=== PATIENT | female | born 1980 | race Caucasian/White ===

== ENCOUNTER 2016-12-01 14:31 | Inpatient (IN) ==
[2016-12-01] MEDS ORDERED: ALBUTEROL NEB SOLN 5 MG/ML 20 ML/BOTTLE CONT NEB STA (14:50)
[2016-12-01] MEDS ORDERED: methylPREDNISolone SOD SUC 125 MG/2 ML VIAL IV STA (14:50)
[2016-12-01] MEDS ORDERED: methylPREDNISolone SOD SUC 125 MG/2 ML VIAL ONE (15:01)
[2016-12-01] MEDS ORDERED: LORazepam 2 MG/1 ML VIAL ONE (15:21)
--- NOTE | 2016-12-01 15:36 | Emergency Department Note ---
Ramiro Yip Meredith, am scribing for, and in the presence of, Jose Starr MD 14: 59. Ro Yip James D, MD, personally performed the services described in this documentation, ascribed by Geovanna Rubio in my presence, and it is both accurate and complete 536 . Arrival - Arrival Chief Complaint: Shortness of Breath Stated Complaint: Asthma ED Nursing Triage Note: ONset of SOB and coughing. Pt had a resp tx at the clinic [facility]. Pt was in pt two weeks ago for same. Mode of Arrival: Ambulatory Limitations: No Limitations Source: Patient, Old Records Reviewed, RN Notes Reviewed - History of Present Illness HPI Narrative: Pt is a 36 y/o white female brought to the ED with c/o asthma attack. She confirms associated dry cough but denies any fever. She has an Albuterol nebulizer and takes Prednisone. Pt was last here for asthma in September 2016. She had additional history of anxiety, depression, bronchitis, kidney stones, and melanoma. Onset (ago): hour(s) Allergies/Adverse Reactions: Allergies Allergy/AdvReac Type Severity Reaction Status Date / Time Cefaclor [From [facility]] Allergy RASH Verified 10/23/16 07:49 Home Medications: Home Medications Medication Instructions Recorded Confirmed Type Escitalopram [Lexapro] 10 mg PO DAILY 06/01/16 12/01/16 History Norgestrel-Ethinyl Estradiol 1 each PO DAILY 06/01/16 12/01/16 History [Uew-Mklwvkue-14 Tablet] Albuterol Tab [Proventil Tab] 1 mg PO TID 09/25/16 12/01/16 History Albuterol/Ipratropium Neb [Duoneb] 3 ml RESP TX Q6H #180 nebulization 10/09/16 12/01/16 Rx solution Montelukast Tab [Singulair Tab] 10 mg PO BID #60 tablet 10/09/16 12/01/16 Rx Pantoprazole Tab [Protonix Tab] 40 mg PO DAILY #30 tablet 10/09/16 12/01/16 Rx amLODIPine [Norvasc] 5 mg PO DAILY #30 tablet 10/09/16 12/01/16 Rx Potassium Chloride 10 meq PO BID 10/24/16 12/01/16 History clonazePAM TAB [KlonoPIN] 0.5 mg PO BID 10/24/16 12/01/16 History hydroCHLOROthiazide 25 mg PO DAILY 10/24/16 12/01/16 History [Hydrochlorothiazide] Benzonatate [Tessalon] 200 mg PO TID PRN 12/01/16 12/01/16 History Theophylline ER Tab 200 mg PO BID W/MEALS 12/01/16 12/01/16 History predniSONE TAB [PredniSONE] 2.5 mg PO QPM 12/01/16 12/01/16 History predniSONE TAB [PredniSONE] 5 mg PO QAM 12/01/16 12/01/16 History Review of System - Review of System 12 point system: reviewed and no additional remarkable complaints except as stated - Review of System Constitutional: Present: as per HPI. Absent: fever Respiratory: Present: as per HPI, cough (dry ), other (asthma attack) Medical,Surgical,& Family Hx - Medical History Cardio: No history of: Cardiovascular Problems Psychological: History of: Anxiety Disorders, Depression Neurology: No history of: Neurological Problems HEENT: History of: Eye Problem (wears glasses) Endocrine: No history of: Endocrine Problems Rheumatology: No history of;: Rheumatological Problems Respiratory: History of: Asthma, Bronchitis Genitourinary: History of: Bladder Problem (uti), Kidney Stones Gastrointestinal: No history of: GI Problems Reproductive: No history of: Reproductive Problems Other: History of: Miscellaneous Medical Problems (melanoma 2011) - Surgical History Abdominal Surgeries: Surgical HX of: Cholecystectomy - Family History Family History: Reports;: Family Heart Disease (Mitral valve prolapse) - Social History Smoking Status: Never smoker Frequency of Alcohol Use: None Type of Drug Use: None Exam Physical Examination: GENERAL: This is a well-nourished, well-developed white female in no apparent distress. VITAL SIGNS: Pulse: 134, Respirations: 26, Blood pressure: 131/76, O2 Saturation : 95 HEENT: Head is normocephalic and atraumatic. Pupils are equally round and reactive to light. Extraocular movement are intact. Oropharynx is benign with moist mucous membranes. NECK: Neck is soft and supple without tenderness. There are no masses. There is no lymphadenopathy. LUNGS: Tachypnea and expiratory wheezing in all lung bright. Chest rises symmetrically. There is no chest wall tenderness. CV: Heart is regular rate and rhythm without murmurs, rubs, or gallops. ABDOMEN: Abdomen is soft, non-tender to palpation. There are no abnormal masses palpated. There is no organomegaly. Bowel sounds are present and active. SKIN: Skin is warm and dry. No rash. EXTREMITIES: Patient has full range of motion without tenderness. There is no pedal edema. NEUROLOGIC: Awake, alert, and oriented x4. Cranial nerves II through XII are grossly intact. There are no motorsensory deficits. PSYCHIATRIC: Normal affect. Normal mood. Vital Signs: Vital Signs Pulse Rate 187 H 12/01/16 15:02 Respiratory Rate 26 H 12/01/16 14:37 Blood Pressure 131/76 12/01/16 14:37 O2 Sat by Pulse Oximetry 97 12/01/16 15:02 Course - Consultations Consultation #1: Discussed with hospitalist. Patient will be admitted to their service. Time: 15:55 Results - Diagnostic Findings Procedure: Chest x-ray: image reviewed by me (No infiltrates, no pleural effusions.) Disposition Clinical Impression: Acute asthma exacerbation Case discussed with: patient Disposition: Disch To Home/Self Care Condition: Stable
[2016-12-01] MEDS ORDERED: LORazepam 2 MG/1 ML VIAL IV STA ×2 (15:47→16:25)
--- NOTE | 2016-12-01 15:52 | XRay Report ---
Exam: XR chest 1V Date: 12/01/2016 2:53 PM Comparison: 10/05/2016 Indication: Cough, wheezing Technique: Portable AP sitting chest Findings: The heart is normal in size. Bronchial wall thickening with accentuation of the perihilar markings. Removal of the left arm PICC line. Unremarkable mediastinum and osseous structures. Impression: Artifactual densities. Findings consistent with reactive airway disease or viral illness. PROCEDURE INTERPRETED AT [facility] DEPARTMENT OF RADIOLOGY Final Report Signed by: Dr. Rola Torrez
[2016-12-01] MEDS ORDERED: LACTULOSE 20 GM/30 ML UDCUP PO PRN (17:24)
[2016-12-01] MEDS ORDERED: ONDANSETRON 4 MG/2 ML VIAL IV PRN (17:24)
[2016-12-01 17:51] LABS: Basophils # 0.1 10*3/uL (0.0-0.2); Basophils % 0.4 % (0.0-0.8); Eosinophils % 0.1 % (0.00-10.9); Hematocrit 41.4 VOL% (35.7-47.0); Immature Granulocytes % 1.4 %; Immature Granulocytes Absolute 0.19 #; Lymphocytes # 3.3 10*3/uL (1.4-4.0); Lymphocytes % 23.7 % (21.3-54.2); Mean Corpuscular HGB Conc 33.8 GM/DL (32-36); Mean Corpuscular Hemoglobin 31 PG (27-34); Mean Corpuscular Volume 92.6 FL (87-102); Mean Platelet Volume 8.9 FL (9.6-12.0); Monocytes % 7.3 % (1.7-12.7); Neutrophils # 9.3 10*3/uL (1.4-7.4); Neutrophils % 67.1 % (38.7-73.9); Platelet Count 425 10*3/uL (130-400); Red Blood Count 4.47 10*6/uL (3.8-5.5); Red Cell Distribution Width 14.6 % (9.3-17.3); White Blood Count 13.8 10*3/uL (4.5-13.71)
[2016-12-01 18:06] LABS: Bilirubin,Total 0.4 MG/DL (0.2-1.0); Calcium 9.4 MG/DL (8.5-10.1); Osmolality,Calculated 286.1 MOS/KG (273-304); Potassium 3.9 MMOL/L (3.5-5.1); Total Protein 7.3 G/DL (6.4-8.3)
--- NOTE | 2016-12-01 18:23 | Hospitalist History & Physical ---
Assessment and Plan - Time spent with patient Time spent with patient: Greater than 30 minutes (1) Status asthmaticus Status: Acute Assessment and plan: Admit to intensive care unit as inpatient Start IV Solu-Medrol 40 mg IV every 8 hours Increase theophylline to 400 mg by mouth twice daily Consider Aminophyllin drip if not improved Monitor tachycardia Use Xopenex Consider pulmonary consultation Current Visit: No Qualifiers: Asthma severity: severe persistent Qualified Code(s): J45.52 - Severe persistent asthma with status asthmaticus (2) Acute asthma exacerbation Status: Acute Current Visit: Yes Qualifiers: Asthma severity: severe persistent Qualified Code(s): J45.51 - Severe persistent asthma with (acute) exacerbation (3) HTN (hypertension) Status: Acute Assessment and plan: cont norvasc- home meds Current Visit: Yes Qualifiers: Hypertension type: essential hypertension Qualified Code(s): I10 - Essential (primary) hypertension (4) Calculus of kidney Status: Chronic Current Visit: No History of Present Illness Chief complaint: Shortness of breath History of present illness: Ms. Hess is a 36 year old female with a hx of asthma. She is a patient of Dr. Moser. She presents to the emergency department today with severe shortness of breath and cough that began earlier this morning. She was hospitalized recently in September for similar symptoms of asthma exacerbation. She is treated with theophylline and prednisone daily. She has been tapering her prednisone as prescribed and has been on a reduced dose of theophylline 200 mg twice daily. This morning she was not feeling well. She went to work. She began having a cough and shortness of breath. This triggered a severe episode of bronchospasm. She was brought to the emergency department and treated with 1 hour-long nebulizer treatment of albuterol. She was also given 125 mg of Solu -Medrol. She continues to wheeze and have cough. She has had periods of tachycardia up to the 140-150 bpm. I was consult by the emergency room physician to evaluate the patient for inpatient hospitalization and treatment for her acute asthma exacerbation with respiratory distress. The patient will be admitted to the intensive care unit for close monitoring. I've increased her theophylline to 400 mg twice daily and started her on IV Solu -Medrol 40 mg IV every 8. Duo nebs have been ordered. Home Medications Medication Instructions Recorded Confirmed Type Escitalopram [Lexapro] 10 mg PO DAILY 06/01/16 12/01/16 History Norgestrel-Ethinyl Estradiol 1 each PO DAILY 06/01/16 12/01/16 History [Euv-[id number]-39 Tablet] Albuterol Tab [Proventil Tab] 1 mg PO TID 09/25/16 12/01/16 History Albuterol/Ipratropium Neb [Duoneb] 3 ml RESP TX Q6H #180 nebulization 10/09/16 12/01/16 Rx solution Montelukast Tab [Singulair Tab] 10 mg PO BID #60 tablet 10/09/16 12/01/16 Rx Pantoprazole Tab [Protonix Tab] 40 mg PO DAILY #30 tablet 10/09/16 12/01/16 Rx amLODIPine [Norvasc] 5 mg PO DAILY #30 tablet 10/09/16 12/01/16 Rx Potassium Chloride 10 meq PO BID 10/24/16 12/01/16 History clonazePAM TAB [KlonoPIN] 0.5 mg PO BID 10/24/16 12/01/16 History hydroCHLOROthiazide 25 mg PO DAILY 10/24/16 12/01/16 History [Hydrochlorothiazide] Benzonatate [Tessalon] 200 mg PO TID PRN 12/01/16 12/01/16 History Theophylline ER Tab 200 mg PO BID W/MEALS 12/01/16 12/01/16 History predniSONE TAB [PredniSONE] 2.5 mg PO QPM 12/01/16 12/01/16 History predniSONE TAB [PredniSONE] 5 mg PO QAM 12/01/16 12/01/16 History Allergies Allergy/AdvReac Type Severity Reaction Status Date / Time Cefaclor [[facility]] Allergy RASH Verified 10/23/16 07:49 Medical,Surgical,& Family Hx - Medical History Cardio: History of: Hypertension No history of: Cardiovascular Problems Psychological: History of: Anxiety Disorders, Depression Neurology: No history of: Neurological Problems HEENT: History of: Eye Problem (wears glasses) Endocrine: No history of: Endocrine Problems Rheumatology: No history of;: Rheumatological Problems Respiratory: History of: Asthma, Bronchitis Genitourinary: History of: Bladder Problem (uti), Kidney Stones Gastrointestinal: No history of: GI Problems Reproductive: No history of: Reproductive Problems Other: History of: Miscellaneous Medical Problems (melanoma 2012) - Surgical History Abdominal Surgeries: Surgical HX of: Cholecystectomy - Family History Family History: Reports;: Family Heart Disease (Mitral valve prolapse) - Social History Smoking Status: Never smoker Frequency of Alcohol Use: None Type of Drug Use: None 12 point system: reviewed and no additional remarkable complaints except as stated - Constitutional Constitutional: Present: as per HPI. Absent: chills, fever(s) - Respiratory Respiratory: Present: cough, dyspnea, dyspnea on exertion, wheezing Exam - Constitutional General appearance: mild distress, over weight - Head Head exam: Present: normal inspection, normocephalic, atraumatic - Eye Eye exam: Present: EOMI Pupils: Present: SEEMA - ENT ENT exam: Present: normal exam - Neck Neck exam: Present: normal inspection. Absent: lymphadenopathy, tenderness - Respiratory Respiratory exam: Present: decreased breath sounds, prolonged expiratory phase, wheezes - Cardiovascular Cardiovascular exam: Present: tachycardia - GI/Abdominal GI/Abdominal exam: Present: normal bowel sounds, soft. Absent: tenderness, rebound - Extremities Exam Extremities exam: Present: normal inspection, full ROM, edema. Absent: calf tenderness - Neurological Exam Neurological exam: Present: alert, oriented X3 - Psychiatric Psychiatric exam: Present: normal affect, normal mood, anxious - Skin Skin exam: Present: normal color, warm, dry Results - Labs CBC & BMP: 12/01/16 15:15 12/01/16 15:15 Lab Results: I have reviewed the past 24 hour labs
[2016-12-01] MEDS ORDERED: ALBUTEROL 2.5 MG/3 ML NEB RESP TX PRN (18:27)
[2016-12-01] MEDS ORDERED: INFLUENZA VIRUS VACCINE 0.5 ML SYRINGE IM ONE (19:58)
[2016-12-01] MEDS: ALBUTEROL 2.5 MG/3 ML NEB RESP TX SCH ×2 (19:58→23:11)
[2016-12-01] MEDS: MONTELUKAST 10 MG TABLET PO SCH (20:26)
[2016-12-01] MEDS: clonazePAM 0.5 MG TABLET PO SCH (20:26)
[2016-12-01] MEDS: ALBUTEROL 2 MG TABLET PO SCH (20:36)
[2016-12-01] MEDS: POTASSIUM CHLORIDE 10 MEQ TABLET PO SCH (20:37)
[2016-12-01] MEDS: ENOXAPARIN 40 MG/0.4 ML SYRINGE SUBCUT SCH (22:15)
[2016-12-01] MEDS: BENZONATATE 100 MG CAPSULE PO PRN (22:59)
[2016-12-02] MEDS: LORazepam 1 MG TABLET PO PRN ×2 (01:52→14:43)
[2016-12-02] MEDS: ALBUTEROL 2.5 MG/3 ML NEB RESP TX SCH ×6 (03:39→23:55)
[2016-12-02] MEDS: methylPREDNISolone SOD SUC 40 MG/1 ML VIAL IV SCH ×3 (04:21→16:55)
[2016-12-02 04:38] LABS: Basophils % 0.1 % (0.0-0.8); Hematocrit 37.9 VOL% (35.7-47.0); Hemoglobin 12.8 GM/DL (12.0-16.0); Immature Granulocytes % 0.9 %; Immature Granulocytes Absolute 0.11 #; Lymphocytes % 8.1 % (21.3-54.2); Mean Corpuscular HGB Conc 33.8 GM/DL (32-36); Mean Corpuscular Hemoglobin 31 PG (27-34); Mean Corpuscular Volume 91.8 FL (87-102); Mean Platelet Volume 8.3 FL (9.6-12.0); Monocytes # 0.3 10*3/uL (0.11-0.8); Monocytes % 2.4 % (1.7-12.7); Neutrophils # 10.4 10*3/uL (1.4-7.4); Neutrophils % 88.5 % (38.7-73.9); Platelet Count 338 10*3/uL (130-400); Red Blood Count 4.13 10*6/uL (3.8-5.5); Red Cell Distribution Width 14.9 % (9.3-17.3); White Blood Count 11.8 10*3/uL (4.5-13.71)
[2016-12-02 05:14] LABS: Albumin 3.6 G/DL (3.4-5.0); Bilirubin,Total 0.4 MG/DL (0.2-1.0); Calcium 9.5 MG/DL (8.5-10.1); Osmolality,Calculated 285.8 MOS/KG (273-304); Potassium 4.1 MMOL/L (3.5-5.1)
[2016-12-02] MEDS: BENZONATATE 100 MG CAPSULE PO PRN ×2 (07:38→18:17)
[2016-12-02] MEDS ORDERED: THEOPHYLLINE ER 200 MG TABLET PO SCH (08:00)
--- NOTE | 2016-12-02 08:53 | Hospitalist Progress Note ---
Assessment and Plan (1) Status asthmaticus Status: Acute Assessment and plan: Transferred to the floor-5E IV Solu-Medrol 40 mg IV every 8 hours Increase theophylline to 400 mg by mouth twice daily Monitor tachycardia Use Xopenex Consider pulmonary consultation Current Visit: No Qualifiers: Asthma severity: severe persistent Qualified Code(s): J45.52 - Severe persistent asthma with status asthmaticus (2) Acute asthma exacerbation Status: Acute Current Visit: Yes Qualifiers: Asthma severity: severe persistent Qualified Code(s): J45.51 - Severe persistent asthma with (acute) exacerbation (3) HTN (hypertension) Status: Acute Assessment and plan: cont norvasc- home meds Current Visit: Yes Qualifiers: Hypertension type: essential hypertension Qualified Code(s): I10 - Essential (primary) hypertension (4) Calculus of kidney Status: Chronic Current Visit: No Hospitalist: Subjective Interval history: Patient seen and examined. She is breathing a little bit better this morning. Cough is not as frequent or as vigorous. Vital signs stable. She continues to have periods of tachycardia associated with the cough. I think she can be transferred to the floor today. Continue steroids and theophylline as well as azithromycin. Exam - Constitutional Vitals: Period Temp Pulse Resp BP Sys/Kapadia Pulse Ox Last 24 Hr 97.1 F-98 F 96-126 16-30 95-146/60-93 90-100 General appearance: mild distress, over weight - Head Head exam: Present: normal inspection, normocephalic, atraumatic - Eye Eye exam: Present: EOMI - Respiratory Respiratory exam: Present: wheezes, other (improved air entry) - Cardiovascular Cardiovascular exam: Present: tachycardia - GI/Abdominal GI/Abdominal exam: Present: normal bowel sounds, soft. Absent: tenderness, rebound - Extremities Exam Extremities exam: Present: edema - Neurological Exam Neurological exam: Present: alert, oriented X3 - Psychiatric Psychiatric exam: Present: normal affect, normal mood - Skin Skin exam: Present: normal color, warm, dry Results - Labs CBC & BMP: 12/02/16 04:23 12/02/16 04:24 Lab Results: I have reviewed the past 24 hour labs
[2016-12-02] MEDS ORDERED: ETHINYL ESTRADIOL/NORGESTREL 0.03-0.3 MG TABLET PO SCH (09:00)
[2016-12-02] MEDS ORDERED: hydroCHLOROthiazide 25 MG TABLET PO SCH (09:00)
[2016-12-02] MEDS ORDERED: FUROSEMIDE 40 MG TABLET PO SCH (09:00)
[2016-12-02] MEDS: MONTELUKAST 10 MG TABLET PO SCH ×2 (09:09→21:12)
[2016-12-02] MEDS: FUROSEMIDE 20 MG TABLET PO SCH (09:09)
[2016-12-02] MEDS: ESCITALOPRAM 10 MG TABLET PO SCH (09:09)
[2016-12-02] MEDS: THEOPHYLLINE ER (24 HR) 400 MG CAPSULE PO SCH ×2 (09:09→16:53)
[2016-12-02] MEDS: clonazePAM 0.5 MG TABLET PO SCH ×2 (09:09→21:13)
[2016-12-02] MEDS: ALBUTEROL 2 MG TABLET PO SCH ×3 (09:10→21:12)
[2016-12-02] MEDS: POTASSIUM CHLORIDE 10 MEQ TABLET PO SCH ×2 (09:11→21:12)
[2016-12-02] MEDS: amLODIPine 5 MG TABLET PO SCH (09:11)
[2016-12-02] MEDS: PANTOPRAZOLE 40 MG TABLET PO SCH (09:11)
[2016-12-02] MEDS: AZITHROMYCIN 250 MG TABLET PO SCH (09:16)
[2016-12-02] MEDS: ACETAMINOPHEN 325 MG TABLET PO PRN (09:22)
[2016-12-02] MEDS: ALPRAZolam 0.5 MG TABLET PO PRN (18:13)
[2016-12-02] MEDS: ENOXAPARIN 40 MG/0.4 ML SYRINGE SUBCUT SCH (21:13)
[2016-12-03] MEDS: LORazepam 1 MG TABLET PO PRN (00:02)
[2016-12-03] MEDS: methylPREDNISolone SOD SUC 40 MG/1 ML VIAL IV SCH ×3 (00:45→15:22)
[2016-12-03] MEDS: ACETAMINOPHEN 325 MG TABLET PO PRN (00:50)
[2016-12-03] MEDS: ALBUTEROL 2.5 MG/3 ML NEB RESP TX SCH ×6 (03:51→23:42)
[2016-12-03] MEDS: amLODIPine 5 MG TABLET PO SCH (08:47)
[2016-12-03] MEDS: POTASSIUM CHLORIDE 10 MEQ TABLET PO SCH ×2 (08:47→20:25)
[2016-12-03] MEDS: FUROSEMIDE 20 MG TABLET PO SCH (08:47)
[2016-12-03] MEDS: clonazePAM 0.5 MG TABLET PO SCH ×2 (08:47→20:25)
[2016-12-03] MEDS: ESCITALOPRAM 10 MG TABLET PO SCH (08:47)
[2016-12-03] MEDS: THEOPHYLLINE ER (24 HR) 400 MG CAPSULE PO SCH ×2 (08:47→17:44)
[2016-12-03] MEDS: MONTELUKAST 10 MG TABLET PO SCH ×2 (08:47→20:38)
[2016-12-03] MEDS: PANTOPRAZOLE 40 MG TABLET PO SCH (08:47)
[2016-12-03] MEDS: AZITHROMYCIN 250 MG TABLET PO SCH (08:47)
[2016-12-03] MEDS: ALBUTEROL 2 MG TABLET PO SCH ×3 (08:50→20:24)
[2016-12-03] MEDS: ALPRAZolam 0.5 MG TABLET PO PRN ×2 (09:45→13:55)
--- NOTE | 2016-12-03 11:03 | Hospitalist Progress Note ---
Assessment and Plan (1) Status asthmaticus Status: Acute Assessment and plan: Transferred to the floor IV Solu-Medrol 40 mg IV every 8 hours Increase theophylline to 400 mg by mouth twice daily Monitor tachycardia Use Xopenex Consider pulmonary consultation Current Visit: No Qualifiers: Asthma severity: severe persistent Qualified Code(s): J45.52 - Severe persistent asthma with status asthmaticus (2) Acute asthma exacerbation Status: Acute Current Visit: Yes Qualifiers: Asthma severity: severe persistent Qualified Code(s): J45.51 - Severe persistent asthma with (acute) exacerbation (3) HTN (hypertension) Status: Acute Assessment and plan: cont norvasc- home meds Current Visit: Yes Qualifiers: Hypertension type: essential hypertension Qualified Code(s): I10 - Essential (primary) hypertension (4) Calculus of kidney Status: Chronic Current Visit: No Hospitalist: Subjective Interval history: Patient seen and examined. Overnight events reviewed. Short periods of tachycardia after coughing and with any physical exertion. Overall she reports improved respirations this morning. Less wheezing and less coughing. Exam - Constitutional Vitals: Period Temp Pulse Resp BP Sys/Kapadia Pulse Ox Last 24 Hr 97.1 F-98.3 F 77-123 16-34 119-155/68-85 93-100 General appearance: mild distress - Head Head exam: Present: normal inspection, normocephalic - Respiratory Respiratory exam: Present: clear to auscultation bilaterally - Cardiovascular Cardiovascular exam: Present: regular rate and rhythm - GI/Abdominal GI/Abdominal exam: Present: normal bowel sounds, soft. Absent: tenderness, rebound - Extremities Exam Extremities exam: Present: edema - Neurological Exam Neurological exam: Present: alert, oriented X3 - Psychiatric Psychiatric exam: Present: normal affect, normal mood - Skin Skin exam: Present: normal color, warm, dry Results - Labs CBC & BMP: 12/02/16 04:23 12/02/16 04:24 Lab Results: I have reviewed the past 24 hour labs
[2016-12-03] MEDS: BENZONATATE 100 MG CAPSULE PO PRN (13:54)
[2016-12-03] MEDS: guaiFENesin/CODEINE 5 ML LIQUID PO PRN (13:54)
[2016-12-03] MEDS ORDERED: methylPREDNISolone SOD SUC 125 MG/2 ML VIAL ONE (14:04)
[2016-12-03] MEDS ORDERED: ALBUTEROL/IPRATROPIUM 3 ML NEB RESP TX ONE (14:25)
[2016-12-03] MEDS ORDERED: methylPREDNISolone SOD SUC 40 MG/1 ML VIAL IV ONE (14:25)
[2016-12-03] MEDS ORDERED: LORazepam 2 MG/1 ML VIAL IV ONE (14:30)
[2016-12-03] MEDS ORDERED: LIDOCAINE 4% TOP SOLN 50 ML BOTTLE RESP TX ONE (14:30)
[2016-12-03] MEDS ORDERED: LEVALBUTEROL 1.25 MG/3 ML NEB RESP TX ONE (14:30)
[2016-12-03] MEDS ORDERED: LORazepam 2 MG/1 ML VIAL ONE (14:31)
[2016-12-03] MEDS ORDERED: MAGNESIUM SULF RIDER 2 GM in PREMIX 1 EACH IV ONE (14:49)
--- NOTE | 2016-12-03 15:17 | Event Note ---
Called to evaluate patient and respiratory distress. She was noted to be having a severe coughing episode. She was treated with repeat nebulizer treatments as well as an increased dose and steroids IV. Cold rags were applied. The patient appeared to have an element of anxiety. Ativan and morphine were given. Magnesium sulfate infusing. I spoke with Dr. Shaw regarding further recommendations. He advised to increase steroids and increased frequency of nebulizer treatments as needed. The patient has a tachycardia sinus tach in the 120s to 160s. She is visibly worked up and scared and in severe distress. At one point she was hyperventilating. Her lungs sound clear. I stayed at the patient's bedside for 45 minutes while this episode improved.
[2016-12-03] MEDS ORDERED: RACEPINEPHRINE 0.5 ML NEB RESP TX ONE (15:19)
[2016-12-03] MEDS: MORPHINE 2 MG/1 ML SYRINGE IV PRN (15:41)
[2016-12-03 16:10] LABS: ABG Base Excess -2.3 MMOL/L (-2.5-2.5); ABG HCO3 19.4 MMOL/L (20-26); ABG Oxygen Saturation 94.1 % (95-100); ABG PO2 67.5 MM HG (80-95); ABG TCO2 20.2 MMOL/L (23-27); Allen Test Positive
--- NOTE | 2016-12-03 16:36 | XRay Report ---
History is coughing Comparison 12/01/2016 The heart and vessels are at the upper range normal in size. No consolidative infiltrates are seen No pneumothorax identified Impression: Stable portable chest PROCEDURE INTERPRETED AT [facility] DEPARTMENT OF RADIOLOGY Final Report Signed by: Dr. Tonya Goldberg
[2016-12-03] MEDS: LORazepam 2 MG/1 ML VIAL IV PRN (17:05)
--- NOTE | 2016-12-03 20:14 | Pulmonology Consult Note ---
Assessment and Plan (1) Anxiety Status: Acute Assessment and plan: Patient does get quite anxious at times and this may be aggravating her asthma. Current Visit: Yes (2) Status asthmaticus Status: Acute Assessment and plan: She apparently has been having coughing spells but she seems to be moving air fairly well at present. She'll continue with steroids and bronchodilator therapy. Current Visit: No Qualifiers: Asthma severity: severe persistent Qualified Code(s): J45.52 - Severe persistent asthma with status asthmaticus (3) HTN (hypertension) Status: Acute Assessment and plan: Her blood pressure has been reasonably stable but she does have a high heart rate. Current Visit: Yes Qualifiers: Hypertension type: essential hypertension Qualified Code(s): I10 - Essential (primary) hypertension History of Present Illness Chief complaint: asthma History of present illness: Ms. Hess is a 36 year old white female was apparently admitted Sunday with an asthma exacerbation. She has been followed by Dr. Allen has been on a tapering dose of prednisone. She says she went to work Sunday and having a little bit of chest tightness. She had some coughing spells and came to the hospital. She was better yesterday but today she had another flareup. She apparently has severe coughing spells and gets very anxious. She actually is quite comfortable at present. She says she's not having a lot of sinus congestion or drainage. She is not having any heartburn or reflux symptoms. She is not having any fever or coughing purulent sputum. She says she feels okay at present. Home Medications Medication Instructions Recorded Confirmed Type Escitalopram [Lexapro] 10 mg PO DAILY 06/01/16 12/01/16 History Norgestrel-Ethinyl Estradiol 1 each PO DAILY 06/01/16 12/01/16 History [Ase-Ddwctetz-05 Tablet] Albuterol Tab [Proventil Tab] 1 mg PO TID 09/25/16 12/01/16 History Albuterol/Ipratropium Neb [Duoneb] 3 ml RESP TX Q6H #180 nebulization 10/09/16 12/01/16 Rx solution Montelukast Tab [Singulair Tab] 10 mg PO BID #60 tablet 10/09/16 12/01/16 Rx Pantoprazole Tab [Protonix Tab] 40 mg PO DAILY #30 tablet 10/09/16 12/01/16 Rx amLODIPine [Norvasc] 5 mg PO DAILY #30 tablet 10/09/16 12/01/16 Rx Potassium Chloride 10 meq PO BID 10/24/16 12/01/16 History clonazePAM TAB [KlonoPIN] 0.5 mg PO BID 10/24/16 12/01/16 History hydroCHLOROthiazide 25 mg PO DAILY 10/24/16 12/01/16 History [Hydrochlorothiazide] Benzonatate [Tessalon] 200 mg PO TID PRN 12/01/16 12/01/16 History Theophylline ER Tab 200 mg PO BID W/MEALS 12/01/16 12/01/16 History predniSONE TAB [PredniSONE] 2.5 mg PO QPM 12/01/16 12/01/16 History predniSONE TAB [PredniSONE] 5 mg PO QAM 12/01/16 12/01/16 History Allergies Allergy/AdvReac Type Severity Reaction Status Date / Time Cefaclor [[facility]] Allergy RASH Verified 10/23/16 07:49 - Constitutional Constitutional: Absent: chills, fever(s) - EENT Eyes: Absent: loss of vision Ears: Absent: decreased hearing Nose, mouth and throat: Absent: headache(s), sinus pressure, sore throat - Cardiovascular Cardiovascular: Absent: chest pain at rest, edema, orthopnea, palpitations - Respiratory Respiratory: Present: cough, dyspnea, wheezing. Absent: change in phlegm color - Gastrointestinal Gastrointestinal: Absent: abdominal pain, dysphagia, heartburn, nausea, vomiting - Genitourinary Genitourinary: Absent: difficulty urinating, dysuria, urinary frequency - Musculoskeletal Musculoskeletal: Absent: arthralgias - Neurological Neurological: Absent: abnormal speech, focal weakness - Psychiatric Psychiatric: Present: anxiety Exam (Pulmonay) H&P - Constitutional Vitals: Period Temp Pulse Resp BP Sys/Kapadia Pulse Ox Last 24 Hr 97.4 F-98.3 F 32-178 18-157 112-151/69-78 93-100 General appearance: no acute distress, over weight, other (she looks quite comfortable at present.) - Head Head exam: Present: normal inspection, normocephalic - Eye Eye exam: Present: EOMI. Absent: scleral icterus Pupils: Present: SEEMA - ENT ENT exam: Present: normal exam, other (no sinus tenderness) - Neck Neck exam: Present: normal inspection. Absent: lymphadenopathy, thyromegaly - Respiratory Respiratory exam: Present: wheezes (she has only very mild wheezing at present.) . Absent: accessory muscle use - Cardiovascular Cardiovascular exam: Present: regular rate and rhythm. Absent: gallop, systolic murmur - GI/Abdominal GI/Abdominal exam: Present: normal bowel sounds, soft. Absent: organomegaly, tenderness - Extremities Exam Extremities exam: Absent: calf tenderness, edema - Neurological Exam Neurological exam: Present: alert, oriented X3 - Psychiatric Psychiatric exam: Present: anxious - Skin Skin exam: Present: warm, dry Medical,Surgical,& Family Hx - Medical History Cardio: History of: Hypertension No history of: Cardiovascular Problems Psychological: History of: Anxiety Disorders, Depression Neurology: No history of: Neurological Problems HEENT: History of: Eye Problem (wears glasses) Endocrine: No history of: Endocrine Problems Rheumatology: No history of;: Rheumatological Problems Respiratory: History of: Asthma, Bronchitis, Pneumonia, Respiratory Problems No history of: COPD, Intubation, Obstructive Sleep Apnea, Pulmonary Embolism , Pulmonary Hypertension, Lung Cancer Renal: No history of: Renal (Kidney) Cancer, Dialysis, Renal Failure, Renal Problems Genitourinary: History of: Bladder Problem (uti), Kidney Stones (2 times) No history of: Recurring Urinary Tract Infections, Genitourinary Cancer Gastrointestinal: No history of: GI Problems Musculoskeletal: No history of: Amputation Reproductive: No history of: Abnormal Pap Smear, Reproductive Problems Other: History of: Miscellaneous Medical Problems (melanoma 2011) - Surgical History Thoracic Surgeries: Patient denies;: Organ Transplant HEENT Surgeries: Patient denies: Eye Surgery, Thyroid Surgery, Tonsilectomy & Adenoidectomy Abdominal Surgeries: Surgical HX of: Cholecystectomy Reproductive Surgeries: Patient denies;: Genitourinary Surgery - Family History Family History: Reports;: Family Heart Disease (Mitral valve prolapse) - Social History Smoking Status: Never smoker Frequency of Alcohol Use: None Type of Drug Use: None Results - Labs CBC & BMP: 12/02/16 04:23 12/02/16 04:24 Labs: Her ABG showed a PO2 of 67 with a PCO2 of 26 and her pH is 7.49 - Diagnostic Findings Procedure: Chest x-ray: image reviewed by me, report reviewed by me (chest x- ray shows no definite infiltrates)
[2016-12-03] MEDS: ENOXAPARIN 40 MG/0.4 ML SYRINGE SUBCUT SCH (20:25)
[2016-12-03] MEDS ORDERED: methylPREDNISolone SOD SUC 40 MG/1 ML VIAL IV SCH (21:00)
[2016-12-04] MEDS: methylPREDNISolone SOD SUC 40 MG/1 ML VIAL IV SCH ×4 (00:13→23:59)
[2016-12-04] MEDS: guaiFENesin/CODEINE 5 ML LIQUID PO PRN (01:00)
[2016-12-04] MEDS: ALBUTEROL 2.5 MG/3 ML NEB RESP TX SCH ×5 (03:10→19:45)
[2016-12-04 04:00] LABS: Calcium 8.5 MG/DL (8.5-10.1); Magnesium 2.6 MG/DL (1.8-2.4); Potassium 4.3 MMOL/L (3.5-5.1)
[2016-12-04] MEDS: LORazepam 2 MG/1 ML VIAL IV PRN (05:29)
--- NOTE | 2016-12-04 07:45 | Pulmonology Progress Note ---
Pulmonary - PN: Subj Interval history: Patient is a 36-year-old that has chronic asthma and came in with URI and coughing episodes. She apparently has coughing spells that may go on for hours but now she feels better. She says she did get some rest last night. She does have a lot of anxiety. She does take a lot of bronchodilators and her heart rate is elevated. She is not having any distress this morning. Exam (Progress Note) - Constitutional Vitals: Period Temp Pulse Resp BP Sys/[place] Pulse Ox Last 24 Hr 97.6 F-98.4 F 32-178 17-157 108-151/69-99 92-999 Exam: General appearance: no acute distress, over weight, other (she looks quite comfortable at present. She is talking okay and not very short of breath.) - Head Head exam: Present: normal inspection, normocephalic - Eye Eye exam: Present: EOMI. Absent: scleral icterus Pupils: Present: SEEMA - ENT ENT exam: Present: normal exam, other (no sinus tenderness) - Neck Neck exam: Present: normal inspection. Absent: lymphadenopathy, thyromegaly - Respiratory Respiratory exam: Present: Her lungs have fairly good breath sounds bilaterally with just very minimal rhonchi. - Cardiovascular Cardiovascular exam: Present: regular rate and rhythm. Absent: gallop, systolic murmur - GI/Abdominal GI/Abdominal exam: Present: normal bowel sounds, soft. Absent: organomegaly, tenderness - Extremities Exam Extremities exam: Absent: calf tenderness, edema - Neurological Exam Neurological exam: Present: alert, oriented X3 - Psychiatric Psychiatric exam: Present: anxious - Skin Skin exam: Present: warm, dry Results - Labs CBC & BMP: 12/02/16 04:23 12/04/16 03:14 Assessment and Plan (1) Anxiety Status: Acute Assessment and plan: Patient does get quite anxious at times and this may be aggravating her asthma. She does take several nerve medicines. Current Visit: Yes (2) Status asthmaticus Status: Acute Assessment and plan: She apparently has been having coughing spells but she seems to be moving air fairly well at present. We will restart her inhaled bronchodilators and steroids. Current Visit: No Qualifiers: Asthma severity: severe persistent Qualified Code(s): J45.52 - Severe persistent asthma with status asthmaticus (3) HTN (hypertension) Status: Acute Assessment and plan: Her blood pressure has been reasonably stable but she does have a high heart rate. Current Visit: Yes Qualifiers: Hypertension type: essential hypertension Qualified Code(s): I10 - Essential (primary) hypertension
[2016-12-04] MEDS: amLODIPine 5 MG TABLET PO SCH (08:27)
[2016-12-04] MEDS: PANTOPRAZOLE 40 MG TABLET PO SCH (08:27)
[2016-12-04] MEDS: FUROSEMIDE 20 MG TABLET PO SCH (08:27)
[2016-12-04] MEDS: ALBUTEROL 2 MG TABLET PO SCH ×3 (08:27→21:38)
[2016-12-04] MEDS: MONTELUKAST 10 MG TABLET PO SCH ×2 (08:27→21:38)
[2016-12-04] MEDS: AZITHROMYCIN 250 MG TABLET PO SCH (08:27)
[2016-12-04] MEDS: ESCITALOPRAM 10 MG TABLET PO SCH (08:28)
[2016-12-04] MEDS: POTASSIUM CHLORIDE 10 MEQ TABLET PO SCH ×2 (08:28→21:37)
[2016-12-04] MEDS: clonazePAM 0.5 MG TABLET PO SCH ×2 (08:28→21:38)
--- NOTE | 2016-12-04 08:50 | Hospitalist Progress Note ---
Assessment and Plan (1) Status asthmaticus Status: Acute Assessment and plan: Transferred to the floor IV Solu-Medrol 40 mg IV every 8 hours Increase theophylline to 400 mg by mouth twice daily Monitor tachycardia Use Xopenex pulmonary following. Current Visit: No Qualifiers: Asthma severity: severe persistent Qualified Code(s): J45.52 - Severe persistent asthma with status asthmaticus (2) Acute asthma exacerbation Status: Acute Current Visit: Yes Qualifiers: Asthma severity: severe persistent Qualified Code(s): J45.51 - Severe persistent asthma with (acute) exacerbation (3) HTN (hypertension) Status: Acute Assessment and plan: cont norvasc- home meds Current Visit: Yes Qualifiers: Hypertension type: essential hypertension Qualified Code(s): I10 - Essential (primary) hypertension (4) Calculus of kidney Status: Chronic Current Visit: No Hospitalist: Subjective Interval history: Patient seen and examined. Chart reviewed. Pulmonary consult appreciated. Patient had an unremarkable evening after transfer to the ICU. She seems much more calm this morning. Cough has improved. O2 sats and lung sounds are good. Will transfer to floor today. Exam - Constitutional Vitals: Period Temp Pulse Resp BP Sys/[place] Pulse Ox Last 24 Hr 97.6 F-98.4 F 32-178 17-157 108-151/69-99 92-999 General appearance: no acute distress, over weight - Head Head exam: Present: normal inspection, normocephalic, atraumatic - Eye Eye exam: Present: EOMI Pupils: Present: SEEMA - ENT ENT exam: Present: normal oropharynx - Neck Neck exam: Present: normal inspection. Absent: lymphadenopathy, tenderness - Respiratory Respiratory exam: Present: clear to auscultation bilaterally - Cardiovascular Cardiovascular exam: Present: regular rate and rhythm - GI/Abdominal GI/Abdominal exam: Present: normal bowel sounds, soft. Absent: tenderness, rebound - Extremities Exam Extremities exam: Present: normal inspection. Absent: calf tenderness, edema - Neurological Exam Neurological exam: Present: alert, oriented X3 - Psychiatric Psychiatric exam: Present: normal affect, normal mood - Skin Skin exam: Present: normal color, warm, dry Results - Labs CBC & BMP: 12/02/16 04:23 12/04/16 03:14 Lab Results: I have reviewed the past 24 hour labs
[2016-12-04] MEDS ORDERED: MORPHINE 2 MG/1 ML SYRINGE IV ONE (09:00)
[2016-12-04] MEDS: MORPHINE 2 MG/1 ML SYRINGE IV PRN ×2 (09:01→18:05)
[2016-12-04] MEDS: THEOPHYLLINE ER (24 HR) 400 MG CAPSULE PO SCH ×2 (10:09→17:29)
[2016-12-04] MEDS: BECLOMETHASONE 80 MCG/PUFF INHALER 8.7 GM INH SCH ×2 (10:10→21:38)
[2016-12-04] MEDS: ACETAMINOPHEN 325 MG TABLET PO PRN (15:37)
[2016-12-04] MEDS ORDERED: diphenhydrAMINE 50 MG/1 ML VIAL ONE (19:05)
[2016-12-04] MEDS ORDERED: diphenhydrAMINE 50 MG/1 ML VIAL IV ONE (19:10)
[2016-12-04] MEDS ORDERED: LORazepam 2 MG/1 ML VIAL ONE (19:55)
--- NOTE | 2016-12-04 19:56 | Event Note ---
Earlier this evening patient was complaining of a headache. She received IV morphine for the headaches and afterwards she turned red and became altered and agitated. I instructed nursing to move her back down to the unit. I examined her in the unit and she is erythematous and confused. We've ordered IV Benadryl to be given and IV Ativan. We'll we'll continue to monitor in the CCU for now
[2016-12-04] MEDS ORDERED: LORazepam 2 MG/1 ML VIAL IV PRN (20:01)
[2016-12-04] MEDS ORDERED: HALOPERIDOL 5 MG/ML AMP IV PRN (21:07)
[2016-12-04] MEDS: ENOXAPARIN 40 MG/0.4 ML SYRINGE SUBCUT SCH (21:44)
[2016-12-05] MEDS: ALBUTEROL 2.5 MG/3 ML NEB RESP TX SCH ×6 (00:54→20:43)
--- NOTE | 2016-12-05 06:55 | Pulmonology Progress Note ---
Pulmonary - PN: Subj Interval history: Patient is a 36-year-old that has chronic asthma and came in with URI and coughing episodes. She apparently has coughing spells that may go on for hours but now she feels better. Last night she apparently had some type of reaction when she took morphine. She is better now. She does take too many medicines. Her lungs sound clear now. We will try to adjust some of her medicines. Exam (Progress Note) - Constitutional Vitals: Period Temp Pulse Resp BP Sys/[place]ia Pulse Ox Last 24 Hr 96.9 F-99.6 F 83-150 15-44 99-142/55-110 92-99 Exam: General appearance: no acute distress, over weight, other (she looks comfortable now and is in no distress at all.) - Head Head exam: Present: normal inspection, normocephalic - Eye Eye exam: Present: EOMI. Absent: scleral icterus Pupils: Present: SEEMA - ENT ENT exam: Present: normal exam, other (no sinus tenderness) - Neck Neck exam: Present: normal inspection. Absent: lymphadenopathy, thyromegaly - Respiratory Respiratory exam: Present: Her lungs have good breath sounds without any wheezing now. - Cardiovascular Cardiovascular exam: Present: regular rate and rhythm. Absent: gallop, systolic murmur - GI/Abdominal GI/Abdominal exam: Present: normal bowel sounds, soft. Absent: organomegaly, tenderness - Extremities Exam Extremities exam: Absent: calf tenderness, edema - Neurological Exam Neurological exam: Present: alert, oriented X3 - Psychiatric Psychiatric exam: Present: She looks like she is resting okay at present. - Skin Skin exam: Present: warm, dry Results - Labs CBC & BMP: 12/02/16 04:23 12/04/16 03:14 Assessment and Plan (1) Anxiety Status: Acute Assessment and plan: Patient does get quite anxious at times and this may be aggravating her asthma. She does take several nerve medicines. At present she is taking too many medicines. Current Visit: Yes (2) Status asthmaticus Status: Acute Assessment and plan: She apparently has been having coughing spells but she seems to be moving air fairly well at present. Present her lungs are completely clear. We'll cut back on some of her medicines. Current Visit: No Qualifiers: Asthma severity: severe persistent Qualified Code(s): J45.52 - Severe persistent asthma with status asthmaticus (3) HTN (hypertension) Status: Acute Assessment and plan: Her blood pressure has been reasonably stable but she does have a high heart rate. Current Visit: Yes Qualifiers: Hypertension type: essential hypertension Qualified Code(s): I10 - Essential (primary) hypertension
[2016-12-05] MEDS: methylPREDNISolone SOD SUC 40 MG/1 ML VIAL IV SCH ×2 (07:25→20:21)
[2016-12-05] MEDS: THEOPHYLLINE ER (24 HR) 400 MG CAPSULE PO SCH (09:51)
[2016-12-05] MEDS: amLODIPine 5 MG TABLET PO SCH (09:52)
[2016-12-05] MEDS: clonazePAM 0.5 MG TABLET PO SCH ×2 (09:52→20:22)
[2016-12-05] MEDS: PANTOPRAZOLE 40 MG TABLET PO SCH (09:52)
[2016-12-05] MEDS: FUROSEMIDE 20 MG TABLET PO SCH (09:52)
[2016-12-05] MEDS: POTASSIUM CHLORIDE 10 MEQ TABLET PO SCH ×2 (09:52→20:22)
[2016-12-05] MEDS: ESCITALOPRAM 10 MG TABLET PO SCH (09:52)
[2016-12-05] MEDS: BECLOMETHASONE 80 MCG/PUFF INHALER 8.7 GM INH SCH ×2 (10:00→20:22)
--- NOTE | 2016-12-05 10:02 | Hospitalist Progress Note ---
Assessment and Plan (1) Acute asthma exacerbation Status: Acute Current Visit: Yes Qualifiers: Asthma severity: severe persistent Qualified Code(s): J45.51 - Severe persistent asthma with (acute) exacerbation Hospitalist: Subjective Interval history: 36 yo female asthmatic admitted with acute episode of hypoxemia with respiratory alkalosis. Had responded well however yesterday after [facility] transfer developed altered LOC with flushing. Previously tolerated morphine but is on several sedating medications in addition. She is back to baseline with clear lung bright this AM. Exam - Constitutional Vitals: Period Temp Pulse Resp BP Sys/K[place]adia Pulse Ox Last 24 Hr 96.9 F-99.6 F 83-150 15-44 99-142/55-110 92-99 General appearance: over weight - Respiratory Respiratory exam: Present: clear to auscultation bilaterally. Absent: rales, rhonchi, wheezes - Cardiovascular Cardiovascular exam: Present: regular rate and rhythm - GI/Abdominal GI/Abdominal exam: Present: normal bowel sounds - Extremities Exam Extremities exam: Absent: edema - Neurological Exam Neurological exam: Present: alert, oriented X3 Results - Labs CBC & BMP: 12/02/16 04:23 12/04/16 03:14
[2016-12-05] MEDS: ACETAMINOPHEN 325 MG TABLET PO PRN ×2 (12:58→20:21)
--- NOTE | 2016-12-05 14:34 | CT Report ---
Referring physician: Kena Jeffery Exam: CT brain without contrast Date: December 05, 2016 Comparison: None Reason: Headache The patient is an inpatient who was admitted on December 01, 2016. Technique: Axial images of the head were obtained without the use of contrast. Total DLP was 1042.6 mGy*cm. Findings: No hydrocephalus or midline shift is present. There is no evidence of an acute infarction, recent intracranial hemorrhage or abnormal mass effect. The osseous structures appear intact. There are minimal secretions within the left maxillary sinus. The mastoid air cells appear clear. Impression: 1. No acute intracranial process is identified. 2. Minimal left maxillary sinus disease. The CT exam was performed using one or more of the following dose reduction techniques: Automated exposure control and adjustment of the mA and/or kV according to patient size. PROCEDURE INTERPRETED AT [facility] DEPARTMENT OF RADIOLOGY Final Report Signed by: Dr. Douglas Pro
[2016-12-05] MEDS: MONTELUKAST 10 MG TABLET PO SCH (20:22)
[2016-12-05] MEDS: ENOXAPARIN 40 MG/0.4 ML SYRINGE SUBCUT SCH (20:22)
[2016-12-06] MEDS: ALBUTEROL 2.5 MG/3 ML NEB RESP TX SCH ×6 (00:41→20:52)
[2016-12-06] MEDS: ACETAMINOPHEN 325 MG TABLET PO PRN ×2 (03:00→13:47)
--- NOTE | 2016-12-06 08:00 | Hospitalist Progress Note ---
Assessment and Plan (1) Acute asthma exacerbation Status: Acute Current Visit: Yes Qualifiers: Asthma severity: severe persistent Qualified Code(s): J45.51 - Severe persistent asthma with (acute) exacerbation Hospitalist: Subjective Interval history: 36 yo female asthma with acute flair with hypoxemia and respiratory alkalosis. Did well overnight and although chest remains clear, still has persistent cough. Exam - Constitutional Vitals: Period Temp Pulse Resp BP Sys/K[place]adia Pulse Ox Last 24 Hr 96.8 F-98.7 F 90-124 14-26 106-158/50-98 92-99 General appearance: over weight - Respiratory Respiratory exam: Present: clear to auscultation bilaterally. Absent: rales, rhonchi, wheezes - Cardiovascular Cardiovascular exam: Present: regular rate and rhythm - GI/Abdominal GI/Abdominal exam: Present: normal bowel sounds - Extremities Exam Extremities exam: Absent: edema - Neurological Exam Neurological exam: Present: alert, oriented X3 Results - Labs CBC & BMP: 12/02/16 04:23 12/04/16 03:14
[2016-12-06] MEDS: BECLOMETHASONE 80 MCG/PUFF INHALER 8.7 GM INH SCH ×2 (08:33→21:04)
[2016-12-06] MEDS: POTASSIUM CHLORIDE 10 MEQ TABLET PO SCH ×2 (08:35→21:04)
[2016-12-06] MEDS: clonazePAM 0.5 MG TABLET PO SCH ×2 (08:35→21:04)
[2016-12-06] MEDS: BENZONATATE 100 MG CAPSULE PO PRN ×2 (08:35→13:48)
[2016-12-06] MEDS: PANTOPRAZOLE 40 MG TABLET PO SCH (08:35)
[2016-12-06] MEDS: ESCITALOPRAM 10 MG TABLET PO SCH (08:35)
[2016-12-06] MEDS: amLODIPine 5 MG TABLET PO SCH (08:36)
[2016-12-06] MEDS: FUROSEMIDE 20 MG TABLET PO SCH (08:36)
[2016-12-06] MEDS: methylPREDNISolone SOD SUC 40 MG/1 ML VIAL IV SCH ×2 (08:36→21:04)
[2016-12-06] MEDS: THEOPHYLLINE ER (24 HR) 400 MG CAPSULE PO SCH (08:45)
--- NOTE | 2016-12-06 14:21 | Pulmonology Progress Note ---
Pulmonary - PN: Subj Interval history: Patient is a 36-year-old that has chronic asthma and came in with URI and coughing episodes. She apparently has coughing spells that may go on for hours but now she feels better. She had a better night last night and rested well. She feels like her shortness of breath is much better. She still has a dry hacking cough. Otherwise she seems to be doing well. Exam (Progress Note) - Constitutional Vitals: Period Temp Pulse Resp BP Sys/K[place]adia Pulse Ox Last 24 Hr 96.8 F-98.7 F 90-120 15-26 106-158/50-98 92-99 Exam: General appearance: no acute distress, over weight, other (she looks comfortable now and is in no distress at all. She is sitting up and moving around little better.) - Head Head exam: Present: normal inspection, normocephalic - Eye Eye exam: Present: EOMI. Absent: scleral icterus Pupils: Present: SEEMA - ENT ENT exam: Present: normal exam, other (no sinus tenderness, no oral lesions.) - Neck Neck exam: Present: normal inspection. Absent: lymphadenopathy, thyromegaly - Respiratory Respiratory exam: Present: Her lungs have good breath sounds without any wheezing now. She is moving air well without any problems now. - Cardiovascular Cardiovascular exam: Present: regular rate and rhythm. Absent: gallop, systolic murmur - GI/Abdominal GI/Abdominal exam: Present: normal bowel sounds, soft. Absent: organomegaly, tenderness - Extremities Exam Extremities exam: Absent: calf tenderness, edema - Neurological Exam Neurological exam: Present: alert, oriented X3 - Psychiatric Psychiatric exam: Present: She looks like she is resting okay at present. - Skin Skin exam: Present: warm, dry Results - Labs CBC & BMP: 12/02/16 04:23 12/04/16 03:14 Assessment and Plan (1) Anxiety Status: Acute Assessment and plan: Patient does get quite anxious at times and this may be aggravating her asthma. She does take several nerve medicines. He does seem to be better today. Current Visit: Yes (2) Status asthmaticus Status: Acute Assessment and plan: She is breathing much better and her lungs are clear now. She still coughs on but no sputum production. She seems to be tolerating medicines a little better. Current Visit: No Qualifiers: Asthma severity: severe persistent Qualified Code(s): J45.52 - Severe persistent asthma with status asthmaticus (3) HTN (hypertension) Status: Acute Assessment and plan: Her blood pressure has been reasonably stable but she does have a high heart rate. Her heart rate is better today. Current Visit: Yes Qualifiers: Hypertension type: essential hypertension Qualified Code(s): I10 - Essential (primary) hypertension
[2016-12-06] MEDS: HYDROcodone/CHLORPHENIRAMINE ER 5 ML UDCUP PO PRN (17:00)
[2016-12-06] MEDS: ENOXAPARIN 40 MG/0.4 ML SYRINGE SUBCUT SCH (21:04)
[2016-12-06] MEDS: MONTELUKAST 10 MG TABLET PO SCH (21:04)
[2016-12-06] MEDS: guaiFENesin/CODEINE 5 ML LIQUID PO PRN (21:04)
[2016-12-07] MEDS: ALBUTEROL 2.5 MG/3 ML NEB RESP TX SCH ×7 (00:13→23:26)
--- NOTE | 2016-12-07 06:49 | Hospitalist Progress Note ---
Assessment and Plan (1) Acute asthma exacerbation Status: Acute Current Visit: Yes Qualifiers: Asthma severity: severe persistent Qualified Code(s): J45.51 - Severe persistent asthma with (acute) exacerbation Hospitalist: Subjective Interval history: 36 yo female chronic asthma with acute episode following URI symptoms presenting with hypoxemia and respiratory alkalosis. She continues to have sinus tachycardia with refractory (non-productive) cough, though chest has remained clear. Vitals are stable and is afebrile. Exam - Constitutional Vitals: Period Temp Pulse Resp BP Sys/K[place]adia Pulse Ox Last 24 Hr 97.3 F-97.9 F 86-118 16-24 129-164/62-96 94-99 General appearance: over weight - Respiratory Respiratory exam: Present: clear to auscultation bilaterally. Absent: rales, rhonchi, wheezes - Cardiovascular Cardiovascular exam: Present: regular rate and rhythm - GI/Abdominal GI/Abdominal exam: Present: normal bowel sounds - Extremities Exam Extremities exam: Absent: edema - Neurological Exam Neurological exam: Present: alert, oriented X3 - Psychiatric Psychiatric exam: Present: anxious Results - Labs CBC & BMP: 12/02/16 04:23 12/04/16 03:14
[2016-12-07] MEDS: methylPREDNISolone SOD SUC 40 MG/1 ML VIAL IV SCH (08:45)
[2016-12-07] MEDS: guaiFENesin/CODEINE 5 ML LIQUID PO PRN ×2 (08:45→20:59)
[2016-12-07] MEDS: ESCITALOPRAM 10 MG TABLET PO SCH (08:46)
[2016-12-07] MEDS: THEOPHYLLINE ER (24 HR) 400 MG CAPSULE PO SCH (08:46)
[2016-12-07] MEDS: FUROSEMIDE 20 MG TABLET PO SCH (08:46)
[2016-12-07] MEDS: clonazePAM 0.5 MG TABLET PO SCH ×2 (08:46→20:58)
[2016-12-07] MEDS: POTASSIUM CHLORIDE 10 MEQ TABLET PO SCH ×2 (08:47→20:58)
[2016-12-07] MEDS: PANTOPRAZOLE 40 MG TABLET PO SCH (08:47)
--- NOTE | 2016-12-07 09:37 | EKG Report ---
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
[2016-12-07] MEDS: amLODIPine 5 MG TABLET PO SCH (10:13)
--- NOTE | 2016-12-07 10:37 | Pulmonology Progress Note ---
Pulmonary - PN: Subj Interval history: Patient is a 36-year-old that has chronic asthma and has had a recent flareup but is doing better now. She still has a dry cough at times but seems to be better. She feels like her shortness of breath is better she is not wheezing now. She does have a tachycardia at times. Overall her breathing seems better. She should be able to go home soon. Exam (Progress Note) - Constitutional Vitals: Period Temp Pulse Resp BP Sys/[place]adia Pulse Ox Last 24 Hr 97.3 F-98.1 F 86-118 16-24 125-164/62-96 94-99 Exam: General appearance: no acute distress, over weight, other (she looks comfortable now and is in no distress at all. She is sitting up and moving around little better.) - Head Head exam: Present: normal inspection, normocephalic - Eye Eye exam: Present: EOMI. Absent: scleral icterus Pupils: Present: SEEMA - ENT ENT exam: Present: normal exam, other (no sinus tenderness, no oral lesions.) - Neck Neck exam: Present: normal inspection. Absent: lymphadenopathy, thyromegaly - Respiratory Respiratory exam: Present: Her lungs have good breath sounds without any wheezing now. She is moving air well and no signs of consolidation. - Cardiovascular Cardiovascular exam: Present: regular rate and rhythm. Her heart rate goes fast at times. Absent: gallop, systolic murmur - GI/Abdominal GI/Abdominal exam: Present: normal bowel sounds, soft. Absent: organomegaly, tenderness - Extremities Exam Extremities exam: Absent: calf tenderness, edema - Neurological Exam Neurological exam: Present: alert, oriented X3 - Psychiatric Psychiatric exam: Present: She looks like she is resting okay at present. - Skin Skin exam: Present: warm, dry Results - Labs CBC & BMP: 12/02/16 04:23 12/04/16 03:14 Assessment and Plan (1) Anxiety Status: Acute Assessment and plan: Patient does get quite anxious at times and this may be aggravating her asthma. She does take several nerve medicines. He does seem to be better today. Current Visit: Yes (2) Status asthmaticus Status: Acute Assessment and plan: She is breathing much better and her lungs are clear now. She still coughs on but no sputum production. She doesn't appear to be wheezing now. We will try to adjust her medicines. Current Visit: No Qualifiers: Asthma severity: severe persistent Qualified Code(s): J45.52 - Severe persistent asthma with status asthmaticus (3) HTN (hypertension) Status: Acute Assessment and plan: Her blood pressure has been reasonably stable but she does have a high heart rate. We will stop her diuretics and adjust her medicines. Current Visit: Yes Qualifiers: Hypertension type: essential hypertension Qualified Code(s): I10 - Essential (primary) hypertension
[2016-12-07] MEDS: BECLOMETHASONE 80 MCG/PUFF INHALER 8.7 GM INH SCH ×2 (11:41→20:59)
[2016-12-07] MEDS: BREO ELLIPTA INH SCH (14:26)
[2016-12-07] MEDS: predniSONE 20 MG TABLET PO SCH (14:27)
[2016-12-07] MEDS: HYDROcodone/CHLORPHENIRAMINE ER 5 ML UDCUP PO PRN (16:35)
[2016-12-07] MEDS: MONTELUKAST 10 MG TABLET PO SCH (20:58)
[2016-12-07] MEDS: ENOXAPARIN 40 MG/0.4 ML SYRINGE SUBCUT SCH (20:59)
[2016-12-08] MEDS: ALBUTEROL 2.5 MG/3 ML NEB RESP TX SCH ×3 (02:38→10:47)
--- NOTE | 2016-12-08 08:55 | Pulmonology Progress Note ---
Pulmonary - PN: Subj Interval history: Patient is a 36-year-old that has chronic asthma and has had a recent flareup but is doing better now. She still has a dry cough at times but seems to be better. She feels like her shortness of breath is better she is not wheezing now. She says she had a better night and rested fairly well. She still has some sinus drainage and a slight cough. She is not feeling short of breath and not really having any wheezing. Overall she feels much better. Exam (Progress Note) - Constitutional Vitals: Period Temp Pulse Resp BP Sys/K[place]adia Pulse Ox Last 24 Hr 97.8 F-98.7 F 75-111 16-20 113-139/58-89 94-99 Exam: General appearance: no acute distress, over weight, other (she looks comfortable now and is in no distress at all. She is ambulating without any problems.) - Head Head exam: Present: normal inspection, normocephalic - Eye Eye exam: Present: EOMI. Absent: scleral icterus Pupils: Present: SEEMA - ENT ENT exam: Present: normal exam, other (no sinus tenderness, no oral lesions. She does have some mild sinus drainage.) - Neck Neck exam: Present: normal inspection. Absent: lymphadenopathy, thyromegaly - Respiratory Respiratory exam: Present: Her lungs have good breath sounds without any wheezing now. She is moving air well and no signs of consolidation. - Cardiovascular Cardiovascular exam: Present: regular rate and rhythm. Her heart rate goes fast at times. Absent: gallop, systolic murmur - GI/Abdominal GI/Abdominal exam: Present: normal bowel sounds, soft. Absent: organomegaly, tenderness - Extremities Exam Extremities exam: Absent: calf tenderness, edema - Neurological Exam Neurological exam: Present: alert, oriented X3 - Psychiatric Psychiatric exam: Present: She looks like she is resting okay at present. - Skin Skin exam: Present: warm, dry Results - Labs CBC & BMP: 12/02/16 04:23 12/04/16 03:14 Assessment and Plan (1) Anxiety Status: Acute Assessment and plan: Patient does get quite anxious at times and this may be aggravating her asthma. She does take several nerve medicines. He does seem to be better today. Current Visit: Yes (2) Status asthmaticus Status: Acute Assessment and plan: She is breathing much better and her lungs are clear now. She does not have any wheezing now. She still has a slight cough. She seems to be tolerating the medicines okay. She can go home from my standpoint. Current Visit: No Qualifiers: Asthma severity: severe persistent Qualified Code(s): J45.52 - Severe persistent asthma with status asthmaticus (3) HTN (hypertension) Status: Acute Assessment and plan: Her blood pressure has been reasonably stable and her heart rate is better today. Current Visit: Yes Qualifiers: Hypertension type: essential hypertension Qualified Code(s): I10 - Essential (primary) hypertension
[2016-12-08] MEDS: BREO ELLIPTA INH SCH (09:57)
[2016-12-08] MEDS: ESCITALOPRAM 10 MG TABLET PO SCH (09:57)
[2016-12-08] MEDS: predniSONE 20 MG TABLET PO SCH (09:57)
[2016-12-08] MEDS: BECLOMETHASONE 80 MCG/PUFF INHALER 8.7 GM INH SCH (09:57)
[2016-12-08] MEDS: POTASSIUM CHLORIDE 10 MEQ TABLET PO SCH (09:57)
[2016-12-08] MEDS: THEOPHYLLINE ER (24 HR) 400 MG CAPSULE PO SCH (09:57)
[2016-12-08] MEDS: amLODIPine 5 MG TABLET PO SCH (09:58)
[2016-12-08] MEDS: PANTOPRAZOLE 40 MG TABLET PO SCH (09:58)
[2016-12-08] MEDS: guaiFENesin/CODEINE 5 ML LIQUID PO PRN (10:02)
[2016-12-08] MEDS: clonazePAM 0.5 MG TABLET PO SCH (10:02)
[2016-12-08 10:36] VITALS: BP 129/82
--- NOTE | 2016-12-08 11:14 | Discharge Summary ---
<Nivia Shipman N - Last Filed: 12/08/16 11:03> Hospital Course - Hospital Course Hospital Course: Ms. Hess is a 36 year old female who was admitted on 12/01/16 for status asthmaticus, acute asthma exacerbation, HTN, and calculus of kidney. Ms. Hess has an extensive history asthma. She is managed as an outpt by Dr. Shaw, treated with theophylline and prednisone daily. She was admitted and started on IV solumedrol, increased theophylline dose and xopenex treatments. Pt also has a history of anxiety, which only worsens her asthma exacerbations, she was treated with IV ativan which improved her anxiety. She was seen in consult by Dr. Shaw who increased the frequency of her treatments and agreed with increased steroid dosages. She slowly began to improve, lungs opened more. She is still having frequent dry cough, worse with exertion. Her lungs are improved this morning, clear and moving good air, no wheezing. Her cough is dry, she did have some productive cough this am shortly after waking up but has since resolved. Dr. Shwa agrees she can be discharged to home today. I have discussed this with her, she will receive a treatment immediately prior to her discharge and is to go home and rest, little to no exertion over the weekend and avoid the humidity. She has nebulizers at home and may continue them Q4-6 hours. Also has Tessalon perles and Robitussin she may use for her cough. She can be discharged to home today, may follow up with Dr. Allen on Sunday. Please see discharge medication reconciliation for accurate list. Discharge Plan - Discharge Data Disposition: Disch To Home/Self Care - Discharge Medications New Beclomethasone 80 Mcg Inhaler [Qvar 80 Mcg] 160 mcg INH BID #1 inhaler Continue Escitalopram [Lexapro] 10 mg PO DAILY Norgestrel-Ethinyl Estradiol [Dce-Feamcato-05 Tablet] 1 each PO DAILY Albuterol Tab [Proventil Tab] 1 mg PO TID Albuterol/Ipratropium Neb [Duoneb] 3 ml RESP TX Q6H #180 nebulization solution Montelukast Tab [Singulair Tab] 10 mg PO BID #60 tablet Pantoprazole Tab [Protonix Tab] 40 mg PO DAILY #30 tablet amLODIPine [Norvasc] 5 mg PO DAILY #30 tablet hydroCHLOROthiazide [Hydrochlorothiazide] 25 mg PO DAILY clonazePAM TAB [KlonoPIN] 0.5 mg PO BID Potassium Chloride 10 meq PO BID Theophylline ER Tab 200 mg PO BID W/MEALS predniSONE TAB [PredniSONE] 5 mg PO QAM #60 tablet Benzonatate [Tessalon] 200 mg PO TID PRN PRN Reason: Cough Discontinued predniSONE TAB [PredniSONE] 2.5 mg PO QPM - Follow Up or Referral Follow Up: Ryan Rodriguez CFNP [Primary Care Provider] - 12/11/16 2:45 am - Forms/Instructions Exam - Constitutional Vitals: Period Temp Pulse Resp BP Sys/[place] Pulse Ox Last 24 Hr 97.5 F-98.7 F 81-111 16-20 113-139/58-89 94-99 General appearance: no acute distress - Head Head exam: Present: normal inspection, normocephalic - Eye Eye exam: Present: EOMI. Absent: scleral icterus Pupils: Present: SEEMA, normal accommodation - ENT ENT exam: Present: normal exam, normal oropharynx - Neck Neck exam: Present: normal inspection. Absent: lymphadenopathy - Respiratory Respiratory exam: Present: clear to auscultation bilaterally, other (frequent dry cough). Absent: wheezes - Cardiovascular Cardiovascular exam: Present: regular rate and rhythm. Absent: tachycardia - GI/Abdominal GI/Abdominal exam: Present: normal bowel sounds, soft. Absent: tenderness - Extremities Exam Extremities exam: Present: normal inspection, full ROM. Absent: edema - Back Exam Back exam: Present: normal inspection. Absent: muscle spasm - Neurological Exam Neurological exam: Present: alert, oriented X3 - Psychiatric Psychiatric exam: Present: normal affect, normal mood - Skin Skin exam: Present: normal color, warm, dry DS: Provider Date of admission: 12/01/16 17:24 Primary care physician: KINGA Myers Attending physician on admission: Kena Jeffery MD Consults: 12/01/16 19:53 Consult to Pharmacy [CONS] Routine Reason for Pharmacy Consult: Adjust Meds Renal Funct 12/03/16 15:11 Consult to Physician [CONS] Routine Comment: asthma exacerbation Consulting Provider: Ramsey Shaw Consulting Provider Notified: Yes Person Notified: Dr. Shaw Date Notified: 12/03/16 Time Notified: 15:28 Consult Notification Comment: Dr. Ngo spoke with Dr. Shaw via telephone. Discharging clinician: FANI Smith Expected date of discharge: 12/08/16 <Kati Dorsey - Last Filed: 12/08/16 11:35> Hospital Course - Hospital Course Hospital Course: Patient seen and examined. Hospital course reviewed and edited as follows. - Time spent with patient Time with patient DS: Greater than 30 minutes Discharge Plan - Discharge Data Condition at Discharge: Stable Discharge Diet: low fat, low cholesterol Activity: resume usual activities as tolerated Hygiene: no restrictions
== END 2016-12-08 13:10 | disposition home or self-care (01) | DRG 202 ==
LOC: N.ED 14:31 → SUATTDRO 17:24 → N.EDINP 17:24 → N.CC 19:41 → N.2E 12-02 11:53 → N.CC 12-03 16:34 → N.5E 12-04 18:34 → N.CC 12-04 19:58 → N.5E 12-05 21:27
PROVIDERS: ADMIT Family Medicine; ATTEND Internal Medicine Cardiovascular Disease

== ENCOUNTER 2021-12-22 19:14 | Observation (INO) ==
[2021-12-22] MEDS ORDERED: SODIUM CHLORIDE 0.9% 1,000 ML IV STA ×2 (19:59→22:26)
[2021-12-22 21:04] LABS: Basophils % 0.2 % (0.0-0.8); Eosinophils % 0.1 % (0.00-10.9); Hematocrit 41.4 VOL% (35.7-47.0); Hemoglobin 13.9 GM/DL (12.0-16.0); Immature Granulocytes % 0.6 %; Lymphocytes # 1.3 10*3/uL (1.4-4.0); Mean Corpuscular HGB Conc 33.6 GM/DL (32-36); Mean Platelet Volume 8.4 FL (9.6-12.0); Monocytes % 2.6 % (1.7-12.7); Neutrophils % 88.5 % (38.7-73.9); Platelet Count 324 T/CUMM (130-400); Red Blood Count 4.55 MC/CUMM (3.8-5.5); Red Cell Distribution Width 13.3 % (9.3-17.3); White Blood Count 16.8 T/CUMM (4-12)
[2021-12-22 21:11] LABS: ABG Base Excess -2.9 MMOL/L (-2.5-2.5); ABG HCO3 19.7 MMOL/L (20-26); ABG Oxygen Saturation 97.3 % (95-100); ABG PCO2 28.7 MM HG (35-48); ABG PH 7.454 (7.35-7.45); ABG PO2 97.7 MM HG (80-95); ABG TCO2 20.6 MMOL/L (23-27)
[2021-12-22 21:25] LABS: Alanine Aminotransferase 40 U/L (13-56); Albumin 3.7 G/DL (3.4-5.0); Alkaline Phosphatase 54 U/L (45-117); Aspartate Amino Transferase 25 U/L (0-37); Bilirubin,Total < 0.39 MG/DL (0.20-1.00); Blood Urea Nitrogen 12 MG/DL (7-18); Calcium 9.1 MG/DL (8.5-10.1); Carbon Dioxide 23 MMOL/L (21-32); Estimated Glom Filtration Rate 115 ML/MIN; Glucose 101 MG/DL (74-106); Osmolality,Calculated 280.3 MOS/KG (273-304); Potassium 3.5 MMOL/L (3.5-5.1); Sodium 141 MMOL/L (136-145); Total Protein 7.4 G/DL (6.4-8.2)
[2021-12-22] MEDS ORDERED: ALBUTEROL/IPRATROPIUM 3 ML NEB RESP TX STA ×2 (22:18→23:28)
[2021-12-22] MEDS ORDERED: SODIUM CHLORIDE 0.9% 2,000 ML IV STA (22:26)
[2021-12-22] MEDS ORDERED: ONDANSETRON 4 MG/2 ML VIAL IV ONE (22:29)
[2021-12-22] MEDS ORDERED: methylPREDNISolone SOD SUC 40 MG/1 ML VIAL IV STA (22:30)
[2021-12-22] MEDS ORDERED: MAGNESIUM SULF RIDER 1 GM/100 ML PREMIX IV STA (22:31)
[2021-12-22] MEDS ORDERED: methylPREDNISolone SOD SUC 125 MG/2 ML VIAL ONE (23:04)
[2021-12-22] MEDS ORDERED: BUDESONIDE 0.5 MG/2 ML NEB RESP TX STA (23:28)
[2021-12-22] MEDS ORDERED: ARFORMOTEROL 15 MCG/2 ML NEB RESP TX STA (23:28)
[2021-12-22] MEDS ORDERED: ALBUTEROL 2.5 MG/3 ML NEB RESP TX PRN (23:28)
[2021-12-23] MEDS ORDERED: DEXTROSE 10% 250 ML BAG IV PRN (00:06)
[2021-12-23] MEDS ORDERED: DOCUSATE SODIUM 100 MG CAPSULE PO PRN (00:06)
[2021-12-23] MEDS ORDERED: ZALEPLON 5 MG CAPSULE PO PRN (00:06)
[2021-12-23] MEDS ORDERED: diphenhydrAMINE CAP 25 MG CAPSULE PO PRN (00:06)
[2021-12-23] MEDS ORDERED: guaiFENesin/DM ER 600-30 MG TABLET PO PRN (00:06)
[2021-12-23] MEDS ORDERED: GLUCAGON 1 MG VIAL IM PRN (00:06)
[2021-12-23] MEDS ORDERED: PROMETHAZINE 25 MG/1 ML VIAL IM PRN (00:06)
[2021-12-23] MEDS ORDERED: ONDANSETRON 4 MG/2 ML VIAL IV PRN (00:06)
[2021-12-23] MEDS ORDERED: hydrALAZINE 20 MG/1 ML VIAL IV PRN (00:06)
[2021-12-23] MEDS ORDERED: NICOTINE 21 MG/24 HR PATCH TRANSDERM PRN (00:06)
[2021-12-23 02:18] LABS: Basophils % 0.2 % (0.0-0.8); Hematocrit 40.5 VOL% (35.7-47.0); Hemoglobin 13.5 GM/DL (12.0-16.0); Immature Granulocytes % 0.6 %; Immature Granulocytes Absolute 0.07 #; Lymphocytes # 0.6 10*3/uL (1.4-4.0); Lymphocytes % 4.7 % (21.3-54.2); Mean Corpuscular HGB Conc 33.3 GM/DL (32-36); Mean Corpuscular Volume 91.6 FL (87-102); Mean Platelet Volume 8.5 FL (9.6-12.0); Monocytes % 0.4 % (1.7-12.7); Neutrophils % 94.1 % (38.7-73.9); Platelet Count 324 T/CUMM (130-400); Red Blood Count 4.42 MC/CUMM (3.8-5.5); Red Cell Distribution Width 13.4 % (9.3-17.3)
[2021-12-23 02:35] LABS: Calcium 8.7 MG/DL (8.5-10.1); Osmolality,Calculated 280.4 MOS/KG (273-304); Potassium 3.6 MMOL/L (3.5-5.1)
[2021-12-23] MEDS: ALBUTEROL/IPRATROPIUM 3 ML NEB RESP TX SCH ×6 (02:41→23:26)
[2021-12-23 02:42] LABS: Lymphocytes 1 % (20-55); Segmented Neutrophils 98 % (50-85); Total Cells Counted 100
[2021-12-23 02:43] LABS: Platelet Estimate Adequate
[2021-12-23] MEDS: ACETAMINOPHEN 325 MG TABLET PO PRN ×2 (03:17→21:35)
[2021-12-23] MEDS ORDERED: SODIUM CHLORIDE 0.9% 1,000 ML IV ONE (07:35)
[2021-12-23] MEDS ORDERED: AZITHROMYCIN INJ 500 MG in SODIUM CHLORIDE 0.9% 250 ML IV SCH (09:00)
[2021-12-23] MEDS: guaiFENesin 200 MG/10 ML UDCUP PO PRN ×2 (09:25→21:35)
[2021-12-23] MEDS: PANTOPRAZOLE 40 MG TABLET PO SCH (09:25)
[2021-12-23] MEDS: methylPREDNISolone SOD SUC 40 MG/1 ML VIAL IV SCH ×2 (18:05→23:25)
[2021-12-23 18:26] LABS: Calcium 8.8 MG/DL (8.5-10.1); Osmolality,Calculated 282.3 MOS/KG (273-304)
[2021-12-24 01:58] LABS: Basophils % 0.1 % (0.0-0.8); Hematocrit 38.6 VOL% (35.7-47.0); Hemoglobin 12.8 GM/DL (12.0-16.0); Immature Granulocytes % 1.5 %; Immature Granulocytes Absolute 0.22 #; Lymphocytes # 0.8 10*3/uL (1.4-4.0); Mean Corpuscular HGB Conc 33.2 GM/DL (32-36); Mean Corpuscular Volume 92.6 FL (87-102); Mean Platelet Volume 8.6 FL (9.6-12.0); Monocytes % 1.7 % (1.7-12.7); Neutrophils % 91.7 % (38.7-73.9); Platelet Count 317 T/CUMM (130-400); Red Blood Count 4.17 MC/CUMM (3.8-5.5); Red Cell Distribution Width 14.1 % (9.3-17.3); White Blood Count 15.1 T/CUMM (4-12)
[2021-12-24 02:25] LABS: Lymphocytes 4 % (20-55); Platelet Estimate Normal; Segmented Neutrophils 94 % (50-85); Total Cells Counted 100
[2021-12-24] MEDS: SODIUM CHLORIDE 0.9% 1,000 ML IV SCH ×3 (02:27→08:09)
[2021-12-24] MEDS: ALBUTEROL/IPRATROPIUM 3 ML NEB RESP TX SCH ×4 (03:50→15:15)
[2021-12-24] MEDS: methylPREDNISolone SOD SUC 40 MG/1 ML VIAL IV SCH ×2 (06:35→15:40)
[2021-12-24] MEDS: ACETAMINOPHEN 325 MG TABLET PO PRN (06:40)
[2021-12-24] MEDS ORDERED: METOPROLOL TARTRATE 25 MG TABLET PO PRN (07:33)
[2021-12-24] MEDS ORDERED: ALPRAZolam 0.25 MG TABLET PO PRN (07:33)
[2021-12-24] MEDS: PANTOPRAZOLE 40 MG TABLET PO SCH (08:07)
[2021-12-24] MEDS ORDERED: DOXYCYCLINE HYCLATE 100 MG CAPSULE PO SCH (09:00)
[2021-12-24] MEDS ORDERED: ESCITALOPRAM 10 MG TABLET PO SCH (09:00)
[2021-12-24] MEDS ORDERED: FUROSEMIDE 20 MG/2 ML VIAL IV ONE (10:03)
[2021-12-24] MEDS ORDERED: VERAPAMIL SR 240 MG TABLET PO SCH (11:00)
[2021-12-24 12:40] VITALS: BP 131/70
== END 2021-12-24 15:52 | disposition home or self-care (01) ==
LOC: N.EDINP 19:14 → N.ED 19:14 → SUATTDRO 12-23 00:06 → N.3E 12-23 16:05
PROVIDERS: ADMIT Internal Medicine; ATTEND Phlebology